=== PATIENT | male | born 1995 | race Two or more races ===

== ENCOUNTER 2022-01-03 14:15 | Emergency (ER) | payer MEDICAID ==
[~2022-01-03] VITALS: Ht 182.9 cm; Wt 81.6 kg
[2022-01-03 14:26] VITALS: BP 150/82
== END 2022-01-03 16:42 | disposition left against medical advice (07) ==
LOC: ER 14:15 → EDBD 14:15 → ER 16:42
DX: R45.851 Suicidal ideations (principal); F17.210 Nicotine dependence, cigarettes, uncomplicated; F12.10 Cannabis abuse, uncomplicated; F15.10 Other stimulant abuse, uncomplicated; Z53.29 Procedure and treatment not carried out because of patient's decision for other reasons